=== PATIENT | female | born 1945 | race Caucasian/White ===

== ENCOUNTER → 2018-04-14 | Outpatient (CLI) | payer MEDICARE, MEDICAID | LOC: M RAD 10:37 | DX: Z12.2 Encounter for screening for malignant neoplasm of respiratory organs (principal); J43.1 Panlobular emphysema; Z87.891 Personal history of nicotine dependence; R91.8 Other nonspecific abnormal finding of lung field | CPT/HCPCS: G0297 ==

== ENCOUNTER → 2018-12-01 | Outpatient (CLI) | payer MEDICARE, MEDICAID ==
--- NOTE | 2018-12-01 16:06 | REP ---
CT study of the chest without contrast: History: Nonspecific abnormal finding in the lung [place]. Comparison CT study April 14, 2018. CT findings: There are multiple tiny subcentimeter pulmonary nodules scattered bilaterally. The largest of these is a 5 mm nodule in the right posterior lung gutter. These are all unchanged from the April 14, 2018 prior study. There are old healed rib fractures on the right and there is some pleuroparenchymal fibrosis in the right base anteriorly. No pleural or pericardial effusion is seen. Some vascular calcification is noted. No hilar or mediastinal mass or adenopathy is observed. No adrenal lesion is seen. Cholecystectomy clips are noted in the upper abdomen. No acute bony abnormality is appreciated. There is a small lipoma in the infraspinatus muscle adjacent to the left shoulder. This measures 2 cm in greatest diameter. Impression: Stable pulmonary nodular opacities. Unchanged from April 14, 2018 prior study. Followup chest CT can be performed in 1 year. Electronically Signed by Pj Smith MD 12/01/2018 05:56 P
== END ==
LOC: M RAD 10:43
PROVIDERS: ATTEND Internal Medicine Pulmonary Disease
DX: R91.8 Other nonspecific abnormal finding of lung field (principal)

== ENCOUNTER → 2019-06-08 | Outpatient (CLI) | payer MEDICARE, MEDICAID ==
--- NOTE | 2019-06-08 16:38 | REP ---
CT of the chest without IV contrast: Comparisons are 12/01/2018 and 04/14/2018. There are multiple small lung nodules. On page 45 there is a 4 mm lung nodule anteriorly in the right upper lobe. This measured 7 mm on 04/14/2018. The right lower lobe on image 77 there is a 5 mm nodule in the deep posterior sulcus of the right lower lobe. This is unchanged from both prior studies. All of the other lung nodules are 2-3 mm in size. No new lung nodules are identified. The There are no infiltrates or pleural effusions. There is no mediastinal or axillary lymph node enlargement. The study is insensitive for hilar lymph node enlargement in the absence of IV contrast. Thoracic aorta is unremarkable. Cardiac size is normal. Upper abdomen: There is no adrenal mass. There are surgical clips in the gallbladder fossa. The visualized upper abdominal contents are otherwise unremarkable. Impression: All of the patient's known lung nodules are either stable in size or are to 3 mm in size. These are all category II lung nodules with the probability of malignancy less than 1%. Depending on risk factors, annual follow-up chest CT might be considered for further evaluation. Electronically Signed by Kenneth Hannah MD 06/08/2019 04:29 P
== END ==
LOC: M RAD 13:58
PROVIDERS: ATTEND Physician Assistant
DX: R91.8 Other nonspecific abnormal finding of lung field (principal)

== ENCOUNTER → 2019-07-21 | Outpatient (REF) | payer MEDICARE, MEDICAID ==
[2019-07-21 17:59] LABS: PERCENT SATURATION 29.4 % (13.2-45.0)
== END ==
LOC: M LAB REF 17:13
PROVIDERS: ATTEND Internal Medicine Nephrology
DX: D64.9 Anemia, unspecified (principal)

== ENCOUNTER → 2019-08-24 | Outpatient (REF) | payer MEDICARE, MEDICAID ==
[2019-08-24 18:27] LABS: PERCENT SATURATION 18.3 % (13.2-45.0)
== END ==
LOC: M LAB REF 16:52
PROVIDERS: ATTEND Internal Medicine Nephrology
DX: D64.9 Anemia, unspecified (principal)

== ENCOUNTER → 2019-11-30 | Outpatient (REF) | payer MEDICARE, MEDICAID ==
[2019-11-30 18:07] LABS: ALBUMIN 3.7 GM/DL (3.2-5.2); CALCIUM LEVEL 9.3 MG/DL (8.8-10.2); CREATININE FOR GFR 2.3 MG/DL (0.55-1.30); GLOMERULAR FILTRATION RATE 21.9 (>39); MAGNESIUM LEVEL 2.1 MG/DL (1.8-2.4); PHOSPHORUS LEVEL 2.9 MG/DL (2.5-4.9); POTASSIUM SERUM 4.6 MEQ/L (3.5-5.1)
== END ==
LOC: M LAB REF 17:21
PROVIDERS: ATTEND Nurse Practitioner Family
DX: N18.4 Chronic kidney disease, stage 4 (severe) (principal); E83.42 Hypomagnesemia

== ENCOUNTER → 2020-01-05 | Outpatient (REF) | payer MEDICARE, MEDICAID ==
[2020-01-05 18:07] LABS: PERCENT SATURATION 27.9 % (13.2-45.0)
== END ==
LOC: M LAB REF 16:52
PROVIDERS: ATTEND Nurse Practitioner Family
DX: D50.9 Iron deficiency anemia, unspecified (principal)

== ENCOUNTER → 2020-05-28 | Outpatient (REF) | payer MEDICARE, MEDICAID ==
[~2020-05-28] MED LIST: ALBU83IN NEB; AMIL5TAB4 PO; ATOR1TAB21 PO; BREO1INH3 INH; CALC1CAP31 PO; CARV3.12 PO; CYAN500T8 PO; D31000TA2 PO; DONE10TA90 PO; ELIQ2.5T PO; FURO40TA2 PO; GABA-1171 PO; GABA-843 PO; HYDR-3910 PO; IRON27TA2 PO; LOVE1INJ SC; MAGN64TASA PO; MIRT1TAB16 PO; OMEP40CA97 PO; OXYC-517 PO; PROAAER10 INH; PROC1INJ5 IV; REST0.05 OU; TIOT18INH INH; URSO1TAB8 PO; VITA-243 PO; VITA400C53 PO; eye drops
[2020-05-28 17:48] LABS: PERCENT SATURATION 13.7 % (13.2-45.0)
== END ==
LOC: M LAB REF 16:56
PROVIDERS: ATTEND Internal Medicine Nephrology
DX: D50.9 Iron deficiency anemia, unspecified (principal)

== ENCOUNTER → 2020-09-09 | Outpatient (CLI) | payer MEDICARE, MEDICAID | LOC: M LABSMTC 07:59 | PROVIDERS: ATTEND Anesthesiology | DX: Z01.812 Encounter for preprocedural laboratory examination (principal); Z20.828 Contact with and (suspected) exposure to other viral communicable diseases | CPT/HCPCS: C9803; U0003 ==

== ENCOUNTER 2020-09-14 06:08 | Inpatient (IN) | payer MEDICARE, MEDICAID ==
--- NOTE | 2020-09-13 12:04 | HPE ---
DATE OF ANTICIPATED ADMISSION: 09/14/2020 PRE-OP DIAGNOSIS: Right hallux valgus deformity with osteoarthritis. HISTORY OF PRESENT ILLNESS: Rhiannon Mina is a 75-year-old who presented for her pre-operative appointment for her first MTP fusion. She is still having pain along her foot. She has received pre-operative clearance from her PCP. She had a UTI, but that has been treated. PAST MEDICAL HISTORY: 1. COPD. 2. Chronic kidney disease stage 4. 3. Osteoarthritis. 4. Hypertension. 5. Anemia. PAST SURGICAL HISTORY: 1. Right hip replacement in 2006. 2. Back surgery in 2006. SOCIAL HISTORY: She does not smoke. She lives alone, but has family that can help her. ALLERGIES: * ASPIRIN. * VALIUM. * SIMVASTATIN. * PENICILLIN. * VIOXX. * CEPHALOSPORIN. PHYSICAL EXAMINATION: General: Well appearing, alert and oriented, in no acute distress. Pulmonary: Regular, non-labored breathing. CV: Regular DP pulse. Musculoskeletal: There is pain and a hallux valgus deformity in the right great toe. She is neurovascularly intact. IMAGING: Right foot x-rays show first MTP osteoarthritis and advanced mid-foot arthritis. There is a hallux valgus deformity. IMPRESSION: Right hallux valgus deformity with first MTP osteoarthritis. PLAN: We will proceed with first MTP fusion and calcaneal bone graft. She would like to stay the night after the surgery so we will set this up for her. She has been medically cleared. We will speak to her kidney doctor about what the best DVT prophylaxis for her will be. All of her questions were answered and she was in agreement with this plan. Informed consent was obtained. She understands risks and benefits of surgery including, but are not limited to infection, damage to nerves and blood vessels, continued pain and stiffness, need for additional procedures. AKIL
[~2020-09-14] VITALS: Ht 165.1 cm; Wt 77.1 kg
[2020-09-14] VITALS (7 sets, daily range): BP systolic 115–133; BP diastolic 64–73
[~2020-09-14 06:08] MED LIST changes: -ELIQ2.5T PO; +LIDOCAINE 1% MDV 20ML VIAL SQ PRN; -LOVE1INJ SC; -OXYC-517 PO; -PROC1INJ5 IV; -REST0.05 OU
[2020-09-14] MEDS ORDERED: ROPIvacaine 0.5% 30ML INJECTION (J2795 PER 1MG) ONE (06:09)
[2020-09-14] MEDS ORDERED: LR 1,000 ML IV ONE (07:00)
[2020-09-14] MEDS ORDERED: MIDAZOLAM INJ 2MG/2ML VIAL (J2250 PER 1MG) As Ordered ONE (07:04)
[2020-09-14] MEDS ORDERED: fentaNYL 100 MCG/2 ML INJECTION (J3010) As Ordered ONE (07:04)
[2020-09-14] MEDS ORDERED: ROCURONIUM BROMIDE 50 MG/5 ML VIAL As Ordered ONE (07:13)
[2020-09-14] MEDS ORDERED: ONDANSETRON 4MG/2ML VIAL As Ordered ONE (07:13)
[2020-09-14] MEDS ORDERED: LIDOCAINE 2% 100MG/5ML SDV (FOR ANES.) As Ordered ONE (07:13)
[2020-09-14] MEDS ORDERED: propofoL 200 MG/20 ML VIAL As Ordered ONE (07:13)
[2020-09-14] MEDS ORDERED: BUPIVACAINE HCL 0.5% 30 ML VIAL As Ordered ONE (07:13)
[2020-09-14] MEDS ORDERED: fentaNYL 250 MCG/5 ML INJECTION (J3010) As Ordered ONE (07:13)
[2020-09-14] MEDS ORDERED: METOCLOPRAMIDE INJ 10MG/2ML VIAL (J2765 PER 1) As Ordered ONE (07:16)
[2020-09-14] MEDS ORDERED: CLINDAMYCIN INJ 900MG/6ML VIAL As Ordered ONE (07:34)
[2020-09-14] MEDS ORDERED: fentaNYL 100 MCG/2 ML INJECTION (J3010) IV ONE (07:45)
[2020-09-14] MEDS ORDERED: dexameTHASONE 4 MG/ML 1ML VIAL (J1100 PER 1MG) As Ordered ONE (09:31)
[2020-09-14] MEDS ORDERED: fentaNYL 100 MCG/2 ML INJECTION (J3010) IV PRN ×2 (09:45→11:15)
[2020-09-14] MEDS ORDERED: oxyCODONE 5MG TAB PO PRN ×2 (09:45→11:15)
[2020-09-14] MEDS ORDERED: ONDANSETRON 4MG/2ML VIAL IV PRN ×3 (09:45→11:15)
[2020-09-14] MEDS ORDERED: LR 1,000 ML IV SCH ×3 (09:45→11:15)
--- NOTE | 2020-09-14 11:26 | REP ---
INDICATION: RIGHT HALLUS VALGUS WITH OSTEOARTHRITIS - MINI C-ARM. COMPARISON: None. TECHNIQUE: Multiple C-arm views right foot performed. FINDINGS: There is placement of plate and screws at the 1st metatarsophalangeal joint. IMPRESSION: 33 seconds fluoroscopy time utilized. <Electronically signed by Kenneth Pagan > 09/14/20 [id number]
--- NOTE | 2020-09-14 13:43 | CR.PDOC ---
General Date of Consultation: Sep 14, 2020 Consultation Chief complaint: Who presented to [facility] for an elective orthopedic procedure History of present illness: Patient is a 75-year-old female with PMHx of COPD, Diastolic CHF, HTN, CKD4 (Follows with Dr. Penaloza), Anemia, OA , who presented to the hospital for an elective right hallux valgus deformity correction with orthopedic surgery. Patient has received outpatient medical clearance from her primary care provider. Hospitalist service was consulted inpatient for medical management. Patient denies any headache, nausea, vomiting, chest pain, shortness breath, palpitations, abdominal pain consultation, diarrhea, or urinary discomfort. They deny any recent fevers or chills. They report that they have had a recent weight gain and the dose of their diuretics was adjusted in the last few weeks. They report that her appetite has been fairly normal. Past Medical History: COPD, Diastolic CHF, HTN, CKD4 (Follows with Dr. Penaloza), Anemia, OA Past Surgical History: Cholecystectomy, approximately 20 years ago Right hip replacement 2006 Back surgery 2006 Allergies: See below Medications: See below Family History: - No history of malignancies Social History: - Denies the use of alcohol or illicit drugs; patient reports that she quit smoking approximately 16 years ago but was a smoker for 30-40 years at [facility] - Denies recent travel or sick contacts - Lives alone - Occupation; used to work as a chambermaid Review of Systems: 10 point review of systems complete, all negative otherwise stated in HPI Physical exam: - Vitals: BP [127/73], HR [74], RR [17], Sat [98%RA], Temp [98.7F] - General: Lying in bed, No acute distress, AAOx3 - HEENT: NC, AT, PERRLA - CVS: RRR, +S1S2 - Lungs: Fair air entry bilaterally, No wheezing / rales / rhonchi - Abdomen: Soft, Non-distended, Non-tender - Extremities: No lower extremity edema, No calf tenderness, left ankle and leg with dressing in place - Neuro: No focal motor or sensory deficit - Skin: No visible rashes Assessment and Plan: Right hallux valgus deformity correction (POD#0) - Presented to [facility] for an elective orthopedic procedure - Has received outpatient medical clearance from her primary care provider - Pain control, physical therapy and anticoagulation at the direction of orthopedic surgery COPD - No evidence of exacerbation - c/w inhaled therapy as ordered Diastolic CHF - No evidence of exacerbation - Will resume diuresis HTN - BP remains well controlled - c/w home BP medications CKD4 - Follows with Dr. Penaloza - Creatinine from 11/30/19 was 2.30 - Will check lab work in AM Anemia - No baseline available for comparison - Will check lab work in AM OA - c/w Tylenol PRN DVT prophylaxis - As per orthopedic team Vital Signs/I&O Vital Signs Date Time Temp Pulse Resp B/P (MAP) Pulse Ox O2 Delivery O2 Flow Rate FiO2 09/14/20 13:15 98.7 74 17 127/73 (91) 98 Room Air 09/14/20 09:54 3 Allergies Coded Allergies: Cephalosporins (Verified Allergy, Severe, chest pain, hallucinations, 09/07/20) Penicillins (Verified Allergy, Severe, rash, hallucinations, 09/07/20) aspirin (Verified Allergy, Severe, rash, hallucinations, 09/07/20) diazepam (Verified Allergy, Severe, hallucination, rash, nausea, 09/07/20) paroxetine (Verified Allergy, Severe, hallucinations, disorientation, 09/07/20) rofecoxib (Verified Allergy, Severe, hallucinations, 09/07/20) NSAIDS (Non-Steroidal Anti-Inflamma (Verified Adverse Reaction, Intermediate, kidney function effect, 09/07/20) Home Medications Scheduled Albuterol Sulf (Albuterol Sulfate) 2.5 Mg/3 Ml Vial.neb, 2.5 MG INH TID, (Reported) Albuterol Sulfate (Proair Hfa) 8.5 Gm Hfa.aer.ad, 2 PUFF INH PRN, (Reported) Amiloride HCl (Amiloride HCl) 5 Mg Tablet, 5 MG PO BID, (Reported) Ascorbic Acid (Vitamin C) 500 Mg Tablet, 500 MG PO DAILY, (Reported) Atorvastatin Calcium (Atorvastatin Calcium) 20 Mg Tablet, 20 MG PO DAILY, (Reported) Calcitriol (Calcitriol) 0.25 Mcg Capsule, 0.25 MCG PO DAILY, (Reported) Carvedilol (Carvedilol) 3.125 Mg Tablet, 3.125 MG PO BID, (Reported) Cholecalciferol (Vitamin D3) (Vitamin D3) 1,000 Unit Tablet, 1,000 UNITS PO DAILY, (Reported) Cyanocobalamin (Vitamin B-12) (Vitamin B-12) 500 Mcg Tablet, 1,000 MCG PO DAILY, (Reported) Donepezil HCl (Donepezil HCl) 10 Mg Tablet, 5 MG PO DAILY, (Reported) Ferrous Gluconate (Iron) 236 Mg Tablet, 27 MG PO DAILY, (Reported) Fluticasone/Vilanterol (Breo Ellipta 200-25 Mcg INH) 1 Each Blst.w.dev, 1 PUFF INH DAILY, (Reported) Furosemide (Furosemide) 40 Mg Tablet, 40 MG PO BID, (Reported) Gabapentin (Gabapentin) 100 Mg Capsule, 100 MG PO QAM, (Reported) Gabapentin (Gabapentin) 300 Mg Capsule, 300 MG PO QPM, (Reported) Hydralazine HCl (Hydralazine HCl) 25 Mg Tablet, 25 MG PO TID, (Reported) Magnesium Chloride (Mag64) 64 Mg Tablet.dr, 64 MG PO TID, (Reported) Mirtazapine (Mirtazapine) 30 Mg Tab.rapdis, 30 MG PO QPM, (Reported) Omeprazole (Omeprazole) 40 Mg Capsule.dr, 40 MG PO BID, (Reported) Tiotropium [place]ham Monohydrate (Spiriva) 18 Mcg Cap.w.dev, 2 INHALATION INH DAILY, (Reported) Ursodiol (Ursodiol) 500 Mg Tablet, 500 MG PO BID, (Reported) Vitamin E (Vitamin E) 400 Unit Capsule, 400 UNIT PO DAILY, (Reported) Miscellaneous Medications [eye drops] , (Reported) KIRA COHEN MD Sep 14, 2020 13:43
[2020-09-14] MEDS ORDERED: PROC1INJ5 IV (14:28)
[2020-09-14] MEDS ORDERED: REST0.05 OU (14:28)
[2020-09-14] MEDS ORDERED: GABA-1171 PO (14:28)
[2020-09-14] MEDS: ALBUTEROL SULFATE 2.5 MG/0.5 ML INH NEB SOLN INH SCH ×2 (15:54→20:09)
[2020-09-14] MEDS: MAGNESIUM CHLORIDE 64 MG TABCR (SLO MAG) PO SCH ×2 (16:00→22:22)
[2020-09-14] MEDS ORDERED: ALBUTEROL SULFATE 2.5 MG/0.5 ML INH NEB SOLN INH PRN (16:00)
[2020-09-14] MEDS: CLINDAMYCIN 600 MG in IV 1 EA IV SCH (16:10)
[2020-09-14] MEDS: **hydrALAZINE HCL** 25 MG TAB PO SCH ×2 (16:10→22:08)
[2020-09-14] MEDS: BREO ELLIPTA INH SCH (16:11)
[2020-09-14] MEDS: TIOTROPIUM INHALER/CAPSULE (SPIRIVA) INH SCH (20:00)
[2020-09-14] MEDS ORDERED: ADVAIR HFA 230/21MCG INHALER INH SCH (20:00)
[2020-09-14] MEDS: ursodioL 300 MG CAP PO SCH (22:05)
[2020-09-14] MEDS: FUROSEMIDE 40 MG TAB PO SCH (22:06)
[2020-09-14] MEDS: MIRTAZAPINE 15 MG TAB PO SCH (22:07)
[2020-09-14] MEDS: CARVedilol 3.125 MG TAB PO SCH (22:07)
[2020-09-14] MEDS: GABAPENTIN 100 MG CAP PO SCH ×2 (22:08)
[2020-09-14] MEDS: OMEPRAZOLE 20 MG CAP PO SCH (22:08)
[2020-09-14] MEDS: aMILoride 5 MG TAB PO SCH (22:08)
[2020-09-15] MEDS: CLINDAMYCIN 600 MG in IV 1 EA IV SCH (00:48)
[2020-09-15 02:27] VITALS: BP 125/60
[2020-09-15 06:07] VITALS: BP_SYST 118; BP_SYST 18; BP_DIAS 68
[2020-09-15] MEDS ORDERED: OXYC-517 PO (06:21)
[2020-09-15] MEDS ORDERED: LOVE1INJ SC (06:21)
[2020-09-15 06:47] LABS: BASO % 0.1 % (0.0-1.0); EOS % 0.1 % (0.0-3.0); HEMOGLOBIN 9.8 g/dl (12.0-15.5); LYMPH # 0.6 10^3/uL (1.5-5.0); LYMPH % 8.1 % (24.0-44.0); MEAN CORPUSCULAR HEMOGLOBIN 28.1 pg (27.0-33.0); MEAN CORPUSCULAR HGB CONC 30.6 g/dl (32.0-36.5); MEAN CORPUSCULAR VOLUME 91.7 fl (80.0-96.0); MONO # 0.6 10^3/uL (0.0-0.8); MONO % 8.5 % (0.0-5.0); NEUTROPHILS # 6.1 10^3/uL (1.5-8.5); NEUTROPHILS % 82.8 % (36.0-66.0); PLATELET COUNT, AUTOMATED 148 10^3/uL (150-450); RED BLOOD COUNT 3.49 10^6/uL (4.00-5.40); WHITE BLOOD COUNT 7.4 10^3/uL (4.0-10.0)
[2020-09-15 07:10] LABS: CALCIUM LEVEL 9.1 MG/DL (8.8-10.2); CREATININE FOR GFR 2.11 MG/DL (0.55-1.30); GLOMERULAR FILTRATION RATE 24.2 (>39); MAGNESIUM LEVEL 1.8 MG/DL (1.8-2.4); POTASSIUM SERUM 4.1 MEQ/L (3.5-5.1)
[2020-09-15] MEDS: TIOTROPIUM INHALER/CAPSULE (SPIRIVA) INH SCH (07:56)
[2020-09-15] MEDS: BREO ELLIPTA INH SCH (07:56)
[2020-09-15] MEDS: ALBUTEROL SULFATE 2.5 MG/0.5 ML INH NEB SOLN INH SCH ×4 (08:00→19:48)
[2020-09-15] MEDS: MAGNESIUM CHLORIDE 64 MG TABCR (SLO MAG) PO SCH ×3 (09:00→20:37)
[2020-09-15] MEDS: ASCORBIC ACID 500 MG TAB PO SCH (09:49)
[2020-09-15] MEDS: ENOXAPARIN 30MG/0.3ML SYRINGE (J1650 PER 10MG) SC SCH (09:49)
[2020-09-15] MEDS: CYANOCOBALAMIN 500 MCG TAB PO SCH (09:50)
[2020-09-15] MEDS: **hydrALAZINE HCL** 25 MG TAB PO SCH ×3 (09:51→20:39)
[2020-09-15] MEDS: ATORVASTATIN 20 MG TAB PO SCH (09:52)
[2020-09-15] MEDS: VITAMIN E 400 INTERNATIONAL UNITS CAP PO SCH (09:52)
[2020-09-15] MEDS: aMILoride 5 MG TAB PO SCH ×2 (09:52→20:39)
[2020-09-15] MEDS: VITAMIN D 1,000 INTERNATIONAL UNITS TABLET PO SCH (09:52)
[2020-09-15] MEDS: CALCITRIOL 0.25 MCG CAP (S0169) PO SCH (09:52)
[2020-09-15] MEDS: FERROUS GLUCONATE 324 MG TAB PO SCH (09:52)
[2020-09-15] MEDS: CARVedilol 3.125 MG TAB PO SCH ×2 (09:52→20:38)
[2020-09-15] MEDS: DONEPEZIL 5 MG TAB PO SCH (09:53)
[2020-09-15] MEDS: OMEPRAZOLE 20 MG CAP PO SCH ×2 (09:53→20:37)
[2020-09-15] MEDS: GABAPENTIN 100 MG CAP PO SCH ×3 (09:53→20:40)
[2020-09-15] MEDS: FUROSEMIDE 40 MG TAB PO SCH ×2 (09:53→20:39)
[2020-09-15] MEDS: ursodioL 300 MG CAP PO SCH ×2 (09:54→20:39)
[2020-09-15 14:00] VITALS: BP 120/70
[2020-09-15] MEDS: NORCO, ANEXSIA 5/325MG TABLET (HYDROcodone/ACETAMINOPHEN) PO PRN ×3 (14:34→23:00)
[2020-09-15 19:55] VITALS: BP 140/64
[2020-09-15] MEDS: MIRTAZAPINE 15 MG TAB PO SCH (20:39)
[2020-09-16 05:49] LABS: BASO % 0.6 % (0.0-1.0); EOS # 0.2 10^3/uL (0.0-0.5); EOS % 3.2 % (0.0-3.0); HEMATOCRIT 31.9 % (36.0-47.0); HEMOGLOBIN 9.4 g/dl (12.0-15.5); LYMPH # 0.9 10^3/uL (1.5-5.0); LYMPH % 18.3 % (24.0-44.0); MEAN CORPUSCULAR HEMOGLOBIN 27.5 pg (27.0-33.0); MEAN CORPUSCULAR HGB CONC 29.5 g/dl (32.0-36.5); MEAN CORPUSCULAR VOLUME 93.3 fl (80.0-96.0); MONO # 0.5 10^3/uL (0.0-0.8); MONO % 10.5 % (0.0-5.0); NEUTROPHILS # 3.4 10^3/uL (1.5-8.5); PLATELET COUNT, AUTOMATED 146 10^3/uL (150-450); RED BLOOD COUNT 3.42 10^6/uL (4.00-5.40); WHITE BLOOD COUNT 5.1 10^3/uL (4.0-10.0)
[2020-09-16 05:59] VITALS: BP 115/58
[2020-09-16 06:16] LABS: CALCIUM LEVEL 9.2 MG/DL (8.8-10.2); CREATININE FOR GFR 2.17 MG/DL (0.55-1.30); GLOMERULAR FILTRATION RATE 23.4 (>39); MAGNESIUM LEVEL 1.7 MG/DL (1.8-2.4); POTASSIUM SERUM 4.3 MEQ/L (3.5-5.1)
[2020-09-16] MEDS: TIOTROPIUM INHALER/CAPSULE (SPIRIVA) INH SCH (07:40)
[2020-09-16] MEDS: BREO ELLIPTA INH SCH (07:40)
[2020-09-16] MEDS: ALBUTEROL SULFATE 2.5 MG/0.5 ML INH NEB SOLN INH SCH ×4 (07:41→19:47)
[2020-09-16] MEDS ORDERED: MAG SULF 1GM/100ML (MAG RUN) 1 GM in IV 1 EA IV ONE (08:00)
[2020-09-16] MEDS: OMEPRAZOLE 20 MG CAP PO SCH ×2 (08:44→20:24)
[2020-09-16] MEDS: aMILoride 5 MG TAB PO SCH ×2 (08:45→21:04)
[2020-09-16] MEDS: ursodioL 300 MG CAP PO SCH ×2 (08:45→21:04)
[2020-09-16] MEDS: NORCO, ANEXSIA 5/325MG TABLET (HYDROcodone/ACETAMINOPHEN) PO PRN ×2 (08:45→16:26)
[2020-09-16] MEDS: DONEPEZIL 5 MG TAB PO SCH (08:46)
[2020-09-16] MEDS: GABAPENTIN 100 MG CAP PO SCH ×3 (08:46→21:04)
[2020-09-16] MEDS: FERROUS GLUCONATE 324 MG TAB PO SCH (08:46)
[2020-09-16] MEDS: CALCITRIOL 0.25 MCG CAP (S0169) PO SCH (08:47)
[2020-09-16] MEDS: VITAMIN E 400 INTERNATIONAL UNITS CAP PO SCH (08:47)
[2020-09-16] MEDS: ATORVASTATIN 20 MG TAB PO SCH (08:47)
[2020-09-16] MEDS: FUROSEMIDE 40 MG TAB PO SCH ×2 (08:47→20:25)
[2020-09-16] MEDS: MAGNESIUM CHLORIDE 64 MG TABCR (SLO MAG) PO SCH ×3 (08:47→20:23)
[2020-09-16] MEDS: VITAMIN D 1,000 INTERNATIONAL UNITS TABLET PO SCH (08:47)
[2020-09-16] MEDS: CYANOCOBALAMIN 500 MCG TAB PO SCH (08:47)
[2020-09-16] MEDS: CARVedilol 3.125 MG TAB PO SCH ×2 (08:47→20:25)
[2020-09-16] MEDS: ASCORBIC ACID 500 MG TAB PO SCH (08:48)
[2020-09-16] MEDS: **hydrALAZINE HCL** 25 MG TAB PO SCH ×3 (08:48→20:24)
[2020-09-16] MEDS: ENOXAPARIN 30MG/0.3ML SYRINGE (J1650 PER 10MG) SC SCH (08:49)
[2020-09-16 14:52] VITALS: BP 139/69
[2020-09-16] MEDS: MIRTAZAPINE 15 MG TAB PO SCH (20:23)
[2020-09-16 22:00] VITALS: BP 133/59
[2020-09-17] MEDS: NORCO, ANEXSIA 5/325MG TABLET (HYDROcodone/ACETAMINOPHEN) PO PRN ×3 (03:25→21:06)
[2020-09-17] MEDS: ALBUTEROL SULFATE 2.5 MG/0.5 ML INH NEB SOLN INH SCH ×4 (05:57→19:50)
[2020-09-17 06:00] VITALS: BP 118/61
[2020-09-17 06:59] LABS: BASO % 0.9 % (0.0-1.0); EOS # 0.2 10^3/uL (0.0-0.5); EOS % 3.7 % (0.0-3.0); HEMATOCRIT 32.2 % (36.0-47.0); HEMOGLOBIN 9.2 g/dl (12.0-15.5); LYMPH # 0.8 10^3/uL (1.5-5.0); LYMPH % 17.7 % (24.0-44.0); MEAN CORPUSCULAR HEMOGLOBIN 27.1 pg (27.0-33.0); MEAN CORPUSCULAR HGB CONC 28.6 g/dl (32.0-36.5); MEAN CORPUSCULAR VOLUME 94.7 fl (80.0-96.0); MONO # 0.4 10^3/uL (0.0-0.8); MONO % 10.1 % (0.0-5.0); NEUTROPHILS # 2.9 10^3/uL (1.5-8.5); NEUTROPHILS % 67.4 % (36.0-66.0); PLATELET COUNT, AUTOMATED 164 10^3/uL (150-450); WHITE BLOOD COUNT 4.3 10^3/uL (4.0-10.0)
[2020-09-17 07:17] LABS: CREATININE FOR GFR 2.39 MG/DL (0.55-1.30); GLOMERULAR FILTRATION RATE 20.9 (>39); MAGNESIUM LEVEL 2.3 MG/DL (1.8-2.4); POTASSIUM SERUM 4.7 MEQ/L (3.5-5.1)
[2020-09-17 08:18] VITALS: BP 125/59
--- NOTE | 2020-09-17 08:19 | RO ---
DATE OF OPERATION: 09/14/2020 PREOPERATIVE DIAGNOSIS: Right hallux valgus with osteoarthritis. POSTOPERATIVE DIAGNOSIS: Right hallux valgus with osteoarthritis. PROCEDURES: * Right first metatarsophalangeal joint arthrodesis. * Right calcaneal bone graft. * Use of the mini C-arm. SURGEON: Arabella Soto MD. MARINE SPECIALIST: SANDI Francois. ANESTHESIA: Laryngeal mask airway (LMA). ESTIMATED BLOOD LOSS: 25 mL. COMPLICATIONS: None. CONDITION: Stable to recovery. INDICATIONS: The patient is a 75-year-old female with longstanding pain and deformity due to a significant hallux valgus deformity that has gone on to first metatarsophalangeal (MTP) osteoarthritis. She has failed conservative measures. The risks and benefits of surgery were discussed with the patient and informed consent was obtained. These include, but are not limited to infection, damage to nerve and blood vessels, continued pain and stiffness, and need for additional procedures. DESCRIPTION OF PROCEDURE: The patient was met in the preoperative area where her right lower extremity was marked as the correct operative side. She was taken to the operating room where she was placed in the supine position on the operating room table. She was given antibiotics within 15 minutes prior to incision. The right lower extremity was prepped and draped in the normal sterile fashion. A well-padded tourniquet had been placed on the right upper thigh. An office time- out was held where the correct patient, operative side, and operative procedure were verified. The leg was exsanguinated and tourniquet was inflated to 250 mmHg. Incision was made directly over the first MTP joint. The extensor hallucis longus (EHL) tendon was retracted. Capsule was incised. There was significant arthritis on both sides of the first MTP joint. Lucy remaining cartilage was debrided with a rongeur and curettes. There was a large medial eminence that was prominent and this was excised using a 38 saw. The bone was fairly soft. I did drill both sides of the joint with a 0.062 K-wire. Next, attention was turned to the lateral heel. Incision was made just below the peroneal tendons. I used. By using a forward drill sleeve I obtained three plugs of bone graft. This wound was irrigated and closed with 3-0 Vicryl and 3-0 nylon. Next, bone graft was placed in the first MTP joint. It was then reduced to proper position and pinned in place with a 0.062 K-wire. X-rays in AP, lateral, and oblique views showed satisfactory position. A foot plate was used to further verify. Then, a 3.0 mm partially threaded lag screw, which was cannulated, was placed across the first MTP joint. This was all Arthrex hardware. I then used an Arthrex plate. It was secured distally with locking screws. I then gained extra compression through the plate using the oblong hole. Finally, two more locking screws were inserted. X-rays were performed in AP, lateral, and oblique view. There was satisfactory compression across the joint and hardware placement. Copious irrigation was performed. I then put the remaining bone graft across the joint after using the danae to drill two danae holes. DBX Putty was added to this area. The capsule was closed using 2-0 Vicryl. Skin was closed using 3-0 Vicryl and 3-0 nylon. The patient was extubated and transferred to the recovery room in stable condition. PLAN: The patient will be nonweightbearing on the right lower extremity. She will be on Lovenox for deep vein thrombosis (DVT) prophylaxis. She will be admitted to the hospital overnight per her request. I will see her back in two weeks for suture removal and advancement into a boot. AKIL
[2020-09-17] MEDS: BREO ELLIPTA INH SCH (09:31)
[2020-09-17] MEDS: ursodioL 300 MG CAP PO SCH ×2 (09:32→20:56)
[2020-09-17] MEDS: OMEPRAZOLE 20 MG CAP PO SCH ×2 (09:32→20:57)
[2020-09-17] MEDS: GABAPENTIN 100 MG CAP PO SCH ×2 (09:32→20:57)
[2020-09-17] MEDS: DONEPEZIL 5 MG TAB PO SCH (09:32)
[2020-09-17] MEDS: VITAMIN D 1,000 INTERNATIONAL UNITS TABLET PO SCH (09:33)
[2020-09-17] MEDS: CYANOCOBALAMIN 500 MCG TAB PO SCH (09:33)
[2020-09-17] MEDS: VITAMIN E 400 INTERNATIONAL UNITS CAP PO SCH (09:33)
[2020-09-17] MEDS: FUROSEMIDE 40 MG TAB PO SCH ×2 (09:34→20:58)
[2020-09-17] MEDS: ATORVASTATIN 20 MG TAB PO SCH (09:35)
[2020-09-17] MEDS: CALCITRIOL 0.25 MCG CAP (S0169) PO SCH (09:35)
[2020-09-17] MEDS: CARVedilol 3.125 MG TAB PO SCH ×2 (09:36→21:00)
[2020-09-17] MEDS: ASCORBIC ACID 500 MG TAB PO SCH (09:36)
[2020-09-17] MEDS: **hydrALAZINE HCL** 25 MG TAB PO SCH ×3 (09:36→20:59)
[2020-09-17] MEDS: FERROUS GLUCONATE 324 MG TAB PO SCH (09:37)
[2020-09-17] MEDS: ENOXAPARIN 30MG/0.3ML SYRINGE (J1650 PER 10MG) SC SCH (09:38)
[2020-09-17] MEDS: MAGNESIUM CHLORIDE 64 MG TABCR (SLO MAG) PO SCH ×3 (09:39→20:57)
[2020-09-17] MEDS: aMILoride 5 MG TAB PO SCH ×2 (09:58→20:57)
[2020-09-17] MEDS: TIOTROPIUM INHALER/CAPSULE (SPIRIVA) INH SCH (12:33)
[2020-09-17 14:10] VITALS: BP 125/59
[2020-09-17] MEDS ORDERED: BISACODYL 10 MG SUPP PR ONE ×2 (14:45→20:00)
[2020-09-17] MEDS ORDERED: MOM 30ML SUSPENSION UDC PO PRN (14:45)
[2020-09-17] MEDS: MIRALAX *UNIT DOSE* 17GM PACKET PO SCH (15:50)
[2020-09-17] MEDS: MIRTAZAPINE 15 MG TAB PO SCH (20:58)
[2020-09-18] MEDS ORDERED: MAGNESIUM CITRATE 300 ML BTL PO ONE (05:45)
[2020-09-18 06:00] VITALS: BP 137/81
[2020-09-18 07:23] LABS: BASO % 0.9 % (0.0-1.0); EOS # 0.2 10^3/uL (0.0-0.5); EOS % 3.5 % (0.0-3.0); HEMATOCRIT 34.6 % (36.0-47.0); HEMOGLOBIN 10.2 g/dl (12.0-15.5); LYMPH # 0.6 10^3/uL (1.5-5.0); LYMPH % 14.4 % (24.0-44.0); MEAN CORPUSCULAR HEMOGLOBIN 27.6 pg (27.0-33.0); MEAN CORPUSCULAR HGB CONC 29.5 g/dl (32.0-36.5); MEAN CORPUSCULAR VOLUME 93.8 fl (80.0-96.0); MONO # 0.3 10^3/uL (0.0-0.8); MONO % 7.9 % (0.0-5.0); NEUTROPHILS # 3.2 10^3/uL (1.5-8.5); NEUTROPHILS % 73.1 % (36.0-66.0); PLATELET COUNT, AUTOMATED 191 10^3/uL (150-450); RED BLOOD COUNT 3.69 10^6/uL (4.00-5.40); WHITE BLOOD COUNT 4.3 10^3/uL (4.0-10.0)
[2020-09-18 07:43] LABS: CALCIUM LEVEL 9.2 MG/DL (8.8-10.2); CREATININE FOR GFR 2.34 MG/DL (0.55-1.30); GLOMERULAR FILTRATION RATE 21.5 (>39); MAGNESIUM LEVEL 3.2 MG/DL (1.8-2.4); POTASSIUM SERUM 4.4 MEQ/L (3.5-5.1)
[2020-09-18] MEDS: ALBUTEROL SULFATE 2.5 MG/0.5 ML INH NEB SOLN INH SCH ×4 (08:00→19:16)
[2020-09-18] MEDS: BREO ELLIPTA INH SCH (08:41)
[2020-09-18] MEDS: TIOTROPIUM INHALER/CAPSULE (SPIRIVA) INH SCH (08:42)
[2020-09-18] MEDS ORDERED: MAGNESIUM CITRATE 300 ML BTL PO PRN (09:00)
[2020-09-18] MEDS ORDERED: BISACODYL 10 MG SUPP PR PRN (09:00)
[2020-09-18] MEDS: ENOXAPARIN 30MG/0.3ML SYRINGE (J1650 PER 10MG) SC SCH (09:43)
[2020-09-18] MEDS: DONEPEZIL 5 MG TAB PO SCH (09:43)
[2020-09-18] MEDS: MIRALAX *UNIT DOSE* 17GM PACKET PO SCH (09:43)
[2020-09-18] MEDS: VITAMIN D 1,000 INTERNATIONAL UNITS TABLET PO SCH (09:44)
[2020-09-18] MEDS: OMEPRAZOLE 20 MG CAP PO SCH ×2 (09:44→20:13)
[2020-09-18] MEDS: CYANOCOBALAMIN 500 MCG TAB PO SCH (09:44)
[2020-09-18] MEDS: FERROUS GLUCONATE 324 MG TAB PO SCH (09:44)
[2020-09-18] MEDS: ASCORBIC ACID 500 MG TAB PO SCH (09:44)
[2020-09-18] MEDS: aMILoride 5 MG TAB PO SCH ×2 (09:45→20:14)
[2020-09-18] MEDS: **hydrALAZINE HCL** 25 MG TAB PO SCH ×3 (09:45→20:15)
[2020-09-18] MEDS: VITAMIN E 400 INTERNATIONAL UNITS CAP PO SCH (09:45)
[2020-09-18] MEDS: GABAPENTIN 100 MG CAP PO SCH ×3 (09:46→20:13)
[2020-09-18] MEDS: ursodioL 300 MG CAP PO SCH ×2 (09:46→20:14)
[2020-09-18] MEDS: CALCITRIOL 0.25 MCG CAP (S0169) PO SCH (09:46)
[2020-09-18] MEDS: FUROSEMIDE 40 MG TAB PO SCH ×2 (09:47→20:14)
[2020-09-18] MEDS: CARVedilol 3.125 MG TAB PO SCH ×2 (09:48→20:15)
[2020-09-18] MEDS: ATORVASTATIN 20 MG TAB PO SCH (09:48)
--- NOTE | 2020-09-18 10:53 | IPNPDOC ---
Text Note Date of Service The patient was seen on 09/18/20. NOTE Subjective: Patient is a 75-year-old female with PMHx of COPD, Diastolic CHF, HTN, CKD4 (Follows with Dr. Penaloza), Anemia, OA , who presented to the hospital for an elective right hallux valgus deformity correction with orthopedic surgery. Patient has received outpatient medical clearance from her primary care provider. Hospitalist service was consulted inpatient for medical management. Patient was seen and examined at the bedside. Patient denies any nausea, vomiting, chest pain, shortness breath, palpitations, abdominal pain, diarrhea, or urinary discomfort. Patient has experienced constipation. Objective: Vitals (See below) General: Lying in bed, appears comfortable, AAOx3 HEENT: NC, AT CVS: RRR, +S1S2 Lungs: Fair air entry b/l, visual wheezing, rhonchi or rales Abdomen: Soft, ND, NT Extremities: R leg / ankle in dressing, - Edema, - Calf tenderness Assessment and plan: Right hallux valgus deformity correction (09/14/2020) - Presented to [facility] for an elective orthopedic procedure - Has received outpatient medical clearance from her primary care provider - Pain control, physical therapy and anticoagulation at the direction of orthopedic surgery Constipation - Adjusted bowel regimen COPD - No evidence of exacerbation - c/w inhaled therapy as ordered Diastolic CHF - No evidence of exacerbation - c/w diuresis HTN - BP remains well controlled - c/w home BP medications CKD4 - Follows with Dr. Penaloza - Creatinine from 11/30/19 was 2.30 - Cr remains at baseline Anemia - No baseline available for comparison - Hg remains stable OA - c/w Tylenol PRN DVT prophylaxis - As per orthopedic team Disposition: - Was transitioned to ALC status yesterday (09/17) - Patient has not yet cleared physical therapy VS,Fishbone, I+O VS, Fishbone, I+O Laboratory Tests 09/18/20 07:11 Vital Signs Date Time Temp Pulse Resp B/P (MAP) Pulse Ox O2 Delivery O2 Flow Rate FiO2 09/18/20 09:48 84 124/57 09/18/20 06:00 98.0 17 99 Room Air 09/18/20 04:56 2.0 I&O- Last 24 Hours up to 6 AM 09/18/20 06:00 Intake Total 1050 ml Output Total 850 ml Balance 200 ml KIRA COHEN MD Sep 18, 2020 10:52
[2020-09-18] MEDS: LACTULOSE 20 GM/30 ML SYRUP UD PO SCH ×2 (12:00→17:54)
[2020-09-18 14:00] VITALS: BP 125/63
[2020-09-18] MEDS: NORCO, ANEXSIA 5/325MG TABLET (HYDROcodone/ACETAMINOPHEN) PO PRN (16:04)
[2020-09-18] MEDS: MIRTAZAPINE 15 MG TAB PO SCH (20:14)
[2020-09-19 05:40] LABS: BASO % 0.8 % (0.0-1.0); EOS # 0.2 10^3/uL (0.0-0.5); EOS % 3.9 % (0.0-3.0); HEMATOCRIT 31.2 % (36.0-47.0); HEMOGLOBIN 9.2 g/dl (12.0-15.5); LYMPH # 0.8 10^3/uL (1.5-5.0); LYMPH % 20.5 % (24.0-44.0); MEAN CORPUSCULAR HEMOGLOBIN 27.2 pg (27.0-33.0); MEAN CORPUSCULAR HGB CONC 29.5 g/dl (32.0-36.5); MEAN CORPUSCULAR VOLUME 92.3 fl (80.0-96.0); MONO # 0.4 10^3/uL (0.0-0.8); MONO % 10.9 % (0.0-5.0); NEUTROPHILS # 2.5 10^3/uL (1.5-8.5); NEUTROPHILS % 63.6 % (36.0-66.0); PLATELET COUNT, AUTOMATED 173 10^3/uL (150-450); RED BLOOD COUNT 3.38 10^6/uL (4.00-5.40); WHITE BLOOD COUNT 3.9 10^3/uL (4.0-10.0)
[2020-09-19] MEDS: LACTULOSE 20 GM/30 ML SYRUP UD PO SCH ×2 (05:45)
[2020-09-19] MEDS ORDERED: LOVE1INJ SC (05:47)
[2020-09-19 06:00] VITALS: BP 133/58
[2020-09-19 06:01] LABS: CALCIUM LEVEL 9.3 MG/DL (8.8-10.2); CREATININE FOR GFR 2.12 MG/DL (0.55-1.30); MAGNESIUM LEVEL 3.1 MG/DL (1.8-2.4); POTASSIUM SERUM 4.1 MEQ/L (3.5-5.1)
[2020-09-19] MEDS: TIOTROPIUM INHALER/CAPSULE (SPIRIVA) INH SCH (07:38)
[2020-09-19] MEDS: BREO ELLIPTA INH SCH (07:39)
[2020-09-19] MEDS: ALBUTEROL SULFATE 2.5 MG/0.5 ML INH NEB SOLN INH SCH ×2 (07:39→12:10)
[2020-09-19] MEDS ORDERED: ELIQ2.5T PO (08:01)
[2020-09-19] MEDS: GABAPENTIN 100 MG CAP PO SCH (08:46)
[2020-09-19] MEDS: CALCITRIOL 0.25 MCG CAP (S0169) PO SCH (08:46)
[2020-09-19] MEDS: ursodioL 300 MG CAP PO SCH (08:47)
[2020-09-19] MEDS: FERROUS GLUCONATE 324 MG TAB PO SCH (08:47)
[2020-09-19] MEDS: FUROSEMIDE 40 MG TAB PO SCH (08:47)
[2020-09-19] MEDS: DONEPEZIL 5 MG TAB PO SCH (08:47)
[2020-09-19] MEDS: OMEPRAZOLE 20 MG CAP PO SCH (08:47)
[2020-09-19] MEDS: VITAMIN E 400 INTERNATIONAL UNITS CAP PO SCH (08:48)
[2020-09-19] MEDS: CYANOCOBALAMIN 500 MCG TAB PO SCH (08:48)
[2020-09-19 08:49] VITALS: BP 127/50
[2020-09-19] MEDS: CARVedilol 3.125 MG TAB PO SCH (08:49)
[2020-09-19] MEDS: VITAMIN D 1,000 INTERNATIONAL UNITS TABLET PO SCH (08:49)
[2020-09-19] MEDS: ASCORBIC ACID 500 MG TAB PO SCH (08:49)
[2020-09-19] MEDS: **hydrALAZINE HCL** 25 MG TAB PO SCH (08:49)
[2020-09-19] MEDS: ATORVASTATIN 20 MG TAB PO SCH (08:49)
[2020-09-19] MEDS: ENOXAPARIN 30MG/0.3ML SYRINGE (J1650 PER 10MG) SC SCH (08:50)
--- NOTE | 2020-09-19 09:01 | IPNPDOC ---
Text Note Date of Service The patient was seen on 09/19/20. NOTE Subjective: Patient is a 75-year-old female with PMHx of COPD, Diastolic CHF, HTN, CKD4 (Follows with Dr. Penaloza), Anemia, OA , who presented to the hospital for an elective right hallux valgus deformity correction with orthopedic surgery. Patient has received outpatient medical clearance from her primary care provider. Hospitalist service was consulted inpatient for medical management. Patient was seen and examined at the bedside. Patient denies any chest pain, shortness breath, palpitations. Denies any nausea, vomiting, abdominal pain, did report several bowel movements yesterday after starting and adjusted bowel regimen. Objective: Vitals (See below) General: Lying in bed, appears comfortable, AAOx3 HEENT: NC, AT CVS: +S1S2 Lungs: Fair air entry b/l, auscultation is without any rhonchi, wheezes or rales Abdomen: Soft, nondistended and nontender Extremities: No appreciable edema, right leg / ankle with dressing in place, - Calf tenderness Assessment and plan: Right hallux valgus deformity correction (09/14/2020) - Presented to [facility] for an elective orthopedic procedure - Has received outpatient medical clearance from her primary care provider - Pain control, physical therapy and anticoagulation at the direction of orthopedic surgery s/p Constipation - Adjusted bowel regimen - c/w Lactulose titrated to 1-2 BM daily COPD - No evidence of exacerbation - c/w inhaled therapy as ordered Diastolic CHF - No evidence of exacerbation - c/w diuresis HTN - BP remains well controlled - c/w home BP medications CKD4 - Follows with Dr. Penaloza - Creatinine from 11/30/19 was 2.30 - Cr remains at baseline Anemia - No baseline available for comparison - Hg remains stable OA - c/w Tylenol PRN DVT prophylaxis - As per orthopedic team Disposition: - Currently ALC status (Since 09/17) - Anticipate discharge home today once cleared by PT Jose F LEONE, I+O Jose F LEONE, I+O Laboratory Tests 09/19/20 05:21 Vital Signs Date Time Temp Pulse Resp B/P (MAP) Pulse Ox O2 Delivery O2 Flow Rate FiO2 09/19/20 08:49 127/50 09/19/20 06:00 97.8 65 18 94 Nasal Cannula 2.0 I&O- Last 24 Hours up to 6 AM 09/19/20 06:00 Intake Total 1620 ml Output Total 1450 ml Balance 170 ml KIRA COHEN MD Sep 19, 2020 09:01
[2020-09-19] MEDS: aMILoride 5 MG TAB PO SCH (09:03)
[2020-09-19] MEDS: NORCO, ANEXSIA 5/325MG TABLET (HYDROcodone/ACETAMINOPHEN) PO PRN (09:04)
== END 2020-09-19 14:10 | disposition home health service (06) | DRG 504 ==
LOC: M SDC 06:08 → M MS5PR 10:52 → M SDC 10:53 → M MS5PR 10:54
PROVIDERS: ADMIT Orthopaedic Surgery; ATTEND Orthopaedic Surgery
PROC: 0SGM04Z Fusion of Right Metatarsal-Phalangeal Joint with Internal Fixation Device, Open Approach (ICD-10-PCS; principal; 2020-09-14 07:30)
DX: M20.11 Hallux valgus (acquired), right foot (principal); I13.0 Hypertensive heart and chronic kidney disease with heart failure and stage 1 through stage 4 chronic kidney disease, or unspecified chronic kidney disease; N18.4 Chronic kidney disease, stage 4 (severe); I50.32 Chronic diastolic (congestive) heart failure; D64.9 Anemia, unspecified; J44.9 Chronic obstructive pulmonary disease, unspecified; M19.90 Unspecified osteoarthritis, unspecified site; Z96.641 Presence of right artificial hip joint; K59.00 Constipation, unspecified

== ENCOUNTER → 2020-12-07 | Outpatient (REF) | payer MEDICARE, MEDICAID ==
[~2020-12-07] MED LIST changes: +CYAN500T14 PO; -CYAN500T8 PO; +ELIQ2.5T PO; +GABA-282 PO; -GABA-843 PO; -LIDOCAINE 1% MDV 20ML VIAL SQ PRN; +LOVE1INJ SC; +OXYC-517 PO; +PROC1INJ5 IV; +REST0.05 OU
[2020-12-07 18:16] LABS: PERCENT SATURATION 24.4 % (13.2-45.0)
== END ==
LOC: M LAB REF 16:45
PROVIDERS: ATTEND Internal Medicine Nephrology
DX: N18.4 Chronic kidney disease, stage 4 (severe) (principal); D63.1 Anemia in chronic kidney disease

== ENCOUNTER → 2020-12-18 | Outpatient (CLI) | payer MEDICARE, MEDICAID ==
--- NOTE | 2020-12-18 16:24 | REP ---
INDICATION: PAIN IN RIGHT LOWER LEG. COMPARISON: None. TECHNIQUE: Multiple ultrasonographic images of the deep venous structures of the right thigh were obtained from the common femoral vein to the popliteal vein along with Doppler interrogation and color flow Doppler images. FINDINGS: There is no abnormal echogenic material seen within any of the visualized deep venous structures that would suggest acute thrombosis. Coaptation is unremarkable throughout. Doppler interrogation shows an expected response to respiratory variability and augmentation. The color flow images show what appears to be a normal vascular pattern throughout. IMPRESSION: There is no ultrasonographic evidence of deep venous thrombosis involving any of the visualized deep venous structures of the right thigh, as described above. <Electronically signed by Edgard Foster > 12/18/20 1347
== END ==
LOC: M RAD 15:37
PROVIDERS: ATTEND Orthopaedic Surgery
DX: M79.661 Pain in right lower leg (principal)

== ENCOUNTER → 2021-03-05 | Outpatient (CLI) | payer MEDICARE, MEDICAID ==
--- NOTE | 2021-03-05 14:01 | REP ---
INDICATION: CKD STAGE 4 COMPARISON: None. TECHNIQUE: Real time compression and duplex Doppler evaluation of the Bilateral upper extremity deep venous system is performed. FINDINGS: The Bilateral subclavian, jugular, axillary, brachial, basilic and cephalic veins are fully compressible where accessible with transducer pressure, and demonstrate no intraluminal thrombus and normal venous waveforms. There is no evidence of deep venous thrombosis. Right: Basilic vein size (mm)/ Cephalic vein size (mm) Upper humerus: 3/1 Lower humerus:2/ Upper forearm: 11/23 Lower forearm/wrist: 11/23 Median cubital:11/24 Right arterial structures: Peak systolic velocity (cm/s)/waveform/size (mm) Axillary: 76/biphasic/5 Brachial: 108/biphasic/4 Radial: 61/biphasic/3 Ulnar:73/biphasic/2 Left: Basilic vein size (mm)/ Cephalic vein size (mm) Upper humerus: 4/not seen Lower humerus:2/not seen Upper forearm: 11/23 Lower forearm/wrist:11/23 Median cubital:11/23 Left arterial structures: Peak systolic velocity (cm/s)/waveform/size (mm) Axillary: 69/ biphasic/7 Brachial: 68/biphasic/4 Radial: 59/biphasic/2 Ulnar: 55/biphasic/1 IMPRESSION: No evidence of deep venous thrombosis of the Bilateral upper extremity deep vein system. Arterial and venous sizes are given above. <Electronically signed by Kenneth Pagan > 03/05/21 [id number]
== END ==
LOC: M RAD 10:15
PROVIDERS: ATTEND Internal Medicine Nephrology
DX: N18.4 Chronic kidney disease, stage 4 (severe) (principal)

== ENCOUNTER → 2021-04-26 | Outpatient (CLI) | payer MEDICARE, MEDICAID ==
--- NOTE | 2021-04-29 14:25 | SLEEPCENT ---
NOCTURNAL POLYSOMNOGRAPHY DATE: 04/26/2021 ORDERED BY: SANDI Zhu Nocturnal polysomnography was performed for evaluation of sleep physiology in this patient with excessive somnolence, nonrestorative sleep, and multiple medical comorbidities. 8 hours and 5 minutes of data were reviewed. There were 264.5 minutes of sleep identified. Sleep latency was normal at 24.5 minutes. REM sleep was delayed at 407 minutes. Sleep architecture showed poor progression early in the study. There were prolonged periods of wake noted. Overall sleep efficiency was 55.6%. One long REM cycle was seen late in the study. The electrocardiogram showed a sinus rhythm with an average heart rate of 60 beats per minute. EEG showed coarsening in background. No focal events were identified. There were normal waveforms for wake and sleep stages. There were only three obstructive respiratory events identified of 10 seconds in duration or greater for an apnea-hypopnea index of 0.7. Snoring was noted prominently late in the study. Arousals from respiratory events occurred 1.8 times per hour. There was minimal activity in the limb leads. IMPRESSION: Normal nocturnal polysomnography with snoring.
== END ==
LOC: M SLEEP 20:00
PROVIDERS: ATTEND Physician Assistant
DX: R06.83 Snoring (principal); R40.0 Somnolence

== ENCOUNTER → 2021-06-27 | Outpatient (REF) | payer MEDICARE, MEDICAID ==
[~2021-06-27] MED LIST changes: +OMEP40CA4 PO; -OMEP40CA97 PO
== END ==
LOC: M LAB REF 17:14
PROVIDERS: ATTEND Internal Medicine Nephrology
DX: E83.42 Hypomagnesemia (principal); N18.4 Chronic kidney disease, stage 4 (severe)

== ENCOUNTER → 2021-08-08 | Outpatient (REF) | payer MEDICARE, MEDICAID | LOC: M LAB REF 19:06 | PROVIDERS: ATTEND Internal Medicine Nephrology | DX: E83.42 Hypomagnesemia (principal) ==

== ENCOUNTER → 2022-11-20 | Outpatient (REF) | payer MEDICARE, MEDICAID ==
[~2022-11-20] MED LIST changes: +ALBU2.5V10 NEB; -ALBU83IN NEB; -D31000TA2 PO; +VITA100093 PO
[2022-11-20 20:07] LABS: BACTERIA, URINE SMALL AMOUNT; HYALINE CAST, URINE NONE SEEN /lpf (0-1); SQUAMOUS EPITHELIAL CELL URINE NONE SEEN /hpf (SMALL AMT); TRANSITIONAL EPI CELLS, URINE SMALL AMOUNT /hpf; WBC, URINE TNTC /hpf (0-3)
== END ==
LOC: M LAB REF 17:14
PROVIDERS: ATTEND Internal Medicine Nephrology
DX: R30.0 Dysuria (principal)

== ENCOUNTER → 2024-03-10 | Outpatient (REF) | payer MEDICARE, MEDICAID, OTHER ==
[~2024-03-10] MED LIST changes: -HYDR-3910 PO; +HYDR25TA87 PO
[2024-03-10 18:44] LABS: PERCENT SATURATION 25.3 % (13.2-45.0)
[2024-03-10 18:46] LABS: FERRITIN 70.7 NG/ML (7.3-270.7)
== END ==
LOC: M LAB REF 17:02
PROVIDERS: ATTEND Internal Medicine Nephrology
DX: N18.9 Chronic kidney disease, unspecified (principal); D63.1 Anemia in chronic kidney disease